=== PATIENT | male | born 1945 | race Two or more races ===

== ENCOUNTER 2020-06-19 10:50 | Outpatient (REF) | payer MEDICARE, MEDICAID, SELFPAY | END 2020-06-19 10:51 | disposition home or self-care (01) | LOC: HO.LAB 10:50 | PROVIDERS: Visit Provider Internal Medicine | DX: Z20.828 Contact with and (suspected) exposure to other viral communicable diseases (principal) | CPT/HCPCS: C9803; U0003 ==

== ENCOUNTER 2020-07-04 11:14 | Outpatient (REF) | payer MEDICARE, MEDICAID, SELFPAY | END 2020-07-04 11:15 | disposition home or self-care (01) | LOC: HO.LAB 11:14 | PROVIDERS: Visit Provider Internal Medicine | DX: Z20.822 Contact with and (suspected) exposure to COVID-19 (principal) | CPT/HCPCS: 36415; C9803; U0003 ==